=== PATIENT | male | born 1980 | race Two or more races ===

== ENCOUNTER 2023-10-26 19:41 | Emergency (ER) | payer MEDICARE, SELFPAY ==
[2023-10-26 19:43] VITALS: BP 109/79
--- NOTE | 2023-10-26 20:13 | ED.GENMED ---
History of Present Illness
General
Chief Complaint: Skin Problem
Source: patient and family
Exam Limitations: non verbal-adult and developmental stage
Time Seen by Provider: 10/26/23 20:01
Nursing documentation reviewed up to this point in time: agreed with
History of Present Illness
History of Present Illness:
43-year male with Down syndrome right-sided facial swelling started with a pimple, for few days had a virtual visit with his primary care today told to go to the ER doing to the ER at [facility] because of the long wait apparently came here mother is
requesting that we try to drain the pimple that she tried at home with a needle was unsuccessful also would like some eyedrops because he is rubbing his eyes and the red patient is at his baseline nonverbal mental status no fevers no vomiting
Past History
Past History
ED Past Medical History: Other (DOWNS)
Social History
Tobacco: Non-smoker
Alcohol: None
Drug: None
Personal: Single
Living: with family
Employment: Not employed
Review of Systems
Review of Systems
All Other Systems: Not applicable
Constitutional: Denies fever
EENT: Reports other (Right facial swelling, rubbing at his eyes)
Phy Exam
Physical Exam
Physical Exam:
Physical Exam
General: 43-year-old male with Down's, nontoxic
Neck: Swelling over the right gnosticism-2 cm cellulitic fluctuant area with some edema down beneath the right eye no proptosis
Heart: Regular
Lungs: no acute respiratory distress.
Neuro: Nonverbal moves all extremity
Skin: no rash
Psychiatric: Unable to assess
Extremities: no edema.
Course
Orders/Labs/Results
Orders:
Orders
10/26/23 20:10
Lidocaine/Epinephrine/Tetracai [Let Topical Anesthetic Gel] 3 ml TOPICAL NOW STA
10/26/23 20:17
Doxycycline [Vibramycin] 100 mg PO NOW STA
Vital Signs
Initial and Last Documented VS:
Initial Vital Signs
Temp Pulse Resp BP Pulse Ox
98.4 F 84 19 109/79 95
10/26/23 19:43 10/26/23 19:43 10/26/23 19:43 10/26/23 19:43 10/26/23 19:43
Last Documented Vital Signs
Temp Pulse Resp BP Pulse Ox
98.4 F 84 19 109/79 95
10/26/23 19:43 10/26/23 19:43 10/26/23 19:43 10/26/23 19:43 10/26/23 19:43
Procedures
Incision/Drainage/Joint Aspiration
Right Face:
Anethesia: topical- LET and 1% Lidocaine with Epi
Preparation: cleaned with Betadine
Type of procedure: drain
Nature of site: abscess
Description of abscess: less than 3cm
Loculations broken up: No
How much fluid was obtained?: scant amount
Fluid description: purulent
Treatment: left open for drainage
MDM/Problems Addressed
Differential Diagnosis Includes:
Cellulitis abscess infected hair follicle no signs of orbital cellulitis at this point
MDM/Problems Addressed:
Right-sided facial swelling
Chronic conditions affecting care:
Downs
Acute Exacerbation and/or Progression of Chronic Illness:
Downs
*Pulse Oximetry
Patient hypoxic: no
*Critical Care Note
Total Time (30-74mins, 75-104mins- exclusive of procedures): Not Applicable
Update Note
Update Note:
Update, will put some local anesthetic on try local I&D, to help facilitate healing started on antibiotics
Mother requests ointment for the eye
Update
Fluctuant area opened up scant drainage, which should help facilitate healing
ED Attending Note
-
Portions of this chart may have been created with voice recognition software.� Occasional wrong word or��sound alike� substitutions may have occurred due to the inherent limitations of voice recognition software.
Discharge Plan
Departure
Patient Disposition: Home (Routine Discharge)
Date of Disposition: 10/26/23
Time of Disposition: 21:06
Patient with high blood pressure during this ER visit?: No
Condition: Good
Discharge Problem:
Abscess, Cellulitis and abscess of face
Instructions: Wound Care (DC), Cellulitis (Skin Infection), Adult (DC), Skin Abscess
Prescriptions:
New
doxycycline monohydrate 25 mg/5 mL suspension for reconstitution
20 ml PO BID 10 Days Qty: 400 0RF
polymyxin B sulf-trimethoprim 10,000 unit- 1 mg/mL drops
1 drp ophthalmic (eye) BID 5 Days Qty: 10 0RF
Activity Restrictions/Additional Instructions:
Return to the ER for worsening symptoms
Interventions
Interventions:
*Risk Screen - Suicide Last Done: 10/26/23 20:06
*General Assessment Last Done: 10/26/23 20:25
*Neglect/Abuse Screening Last Done: 10/26/23 20:06
ED-Skin Assessment Last Done: 10/26/23 20:25
Discharge Date and Time
Print Language: YORUBA
--- NOTE | 2023-10-26 20:17 | EDRN ---
Called pharmacy for liquid doxycycline
[2023-10-26] MEDS: LET TOPICAL ANESTHETIC GEL 3 ML TOPICAL (20:18)
[2023-10-26] MEDS: VIBRAMYCIN 100 MG PO (20:53)
== END 2023-10-26 21:33 | disposition home or self-care (01) ==
LOC: EMR 19:41
PROVIDERS: EMERGENCY PHYSICIAN Emergency Medicine; FAMILY PHYSICIAN Family Medicine
DX: L03.211 Cellulitis of face (principal); L02.01 Cutaneous abscess of face; Q90.9 Down syndrome, unspecified; F84.0 Autistic disorder
CPT/HCPCS: 99283; 10060

== ENCOUNTER 2023-11-18 19:57 | Emergency (ER) | payer MEDICARE, SELFPAY ==
[2023-11-18 20:00] VITALS: BP 112/63
--- NOTE | 2023-11-18 22:31 | ED.GENMED ---
History of Present Illness
<Wally Julien MD, Resident - Last Filed: 11/18/23 23:57>
General
Chief Complaint: Male Genito-Urinary Symptoms
Source: family
Exam Limitations: non verbal-adult
Time Seen by Provider: 11/18/23 22:27
Travel History
Have you traveled to any high risk areas for coronavirus over the past 14 days?: No
Have you had any contact with someone who has COVID-19?: No
Do you have any symptoms of coronavirus? Fever > 100 degrees, chills, cough, shortness of breath, sore throat, loss of taste or smell, muscle aches, or headache?: No
History of Present Illness
History of Present Illness:
Ruben Morin, 43-year-old male with Down syndrome, has had scrotal swelling for the past few days. His mother noted the swelling and warmth over the swollen area while bathing him today - she had not noted any swelling a few days ago. He has also
been more itchy around his groin area for the past couple of days. Denies any fever, anorexia, unintentional weight loss, blood in urine or dysuria. Denies any oral and neck swelling or pain, saliva pooling, excessive drooling, or difficulty eating
or drinking.
Past History
<Wally Julien MD, Resident - Last Filed: 11/18/23 23:57>
Past History
ED Past Medical History: Other (Down syndrome)
ED Past Surgical History: Other (Cleft palate)
Social History
Tobacco: Non-smoker
Alcohol: None
Drug: None
Personal: Single
Living: with family
Employment: Not employed
Review of Systems
<Wally Julien MD, Resident - Last Filed: 11/18/23 23:57>
Review of Systems
Allergies reviewed?: Yes
Unable to obtain full review of systems at this time due to: non-verbal
Other source history: family
All Other Systems: ROS reviewed and negative except as documented in HPI and ROS
Phy Exam
<Wally Julien MD, Resident - Last Filed: 11/18/23 23:57>
General Physical Exam
General Presentation: well appearing and no apparent distress
General Skin: warm and dry
General Habitus: normal
General Mental: alert
General Hydration: appears well hydrated
ENT Exam
ENT Exam: EOMI, pharynx normal, neck supple and normocephalic
Eye Exam
Eye Exam: PERRL, cornea clear and conjunctiva normal
Cardiovascular Exam
Cardiovascular Exam: regular rate/rhythm, no edema, no murmur and normal peripheral pulses
Pulmonary Exam
Pulmonary Exam: lungs clear, no respiratory distress, no rales, no crackles, no rhonchi, no stridor, no wheezing and no cough
Gastrointestinal Exam
Gastrointestinal Exam: normal bowel sounds, non tender, soft, no organomegaly, no pulsatile mass and non distended
Genitourinary Exam Male
Exam Male: non circumcised and other (scrotal swelling and erythema)
Neurological Exam
Neurological Exam: alert, no motor deficits and non verbal
Musculoskeletal Exam
Musculoskeletal Exam: full ROM and no edema
Skin Exam
Skin Exam: normal color, warm/dry, no rash and no petechia
Psychiatric Exam
Psychiatric Exam: agitated and anxious
Course
<Wally Julien MD, Resident - Last Filed: 11/18/23 23:57>
Orders/Labs/Results
Orders:
Orders
11/18/23 22:[address] Non Medication Order As Directed
Physician Order: please weigh patient
Above order entered?: Yes
11/18/23 22:55
Midazolam HCl [Versed] 20 mg BUCCAL NOW STA
11/18/23 23:15
Midazolam HCl [Versed] 10 mg NASAL NOW STA
11/18/23 23:48
Amoxicillin/Clavulanate Potass [Augmentin 250 mg/5 ml] 500 mg PO NOW STA
Abnormal Lab Results
11/18/23
23:49
POC Glucose 113 H mg/dl
(70-99)
Vital Signs
Initial and Last Documented VS:
Initial Vital Signs
Pulse Resp BP Pulse Ox
79 18 112/63 99
11/18/23 20:00 11/18/23 20:00 11/18/23 20:00 11/18/23 20:00
Last Documented Vital Signs
Pulse Resp BP Pulse Ox
79 18 112/63 99
11/18/23 20:00 11/18/23 20:00 11/18/23 20:00 11/18/23 20:00
<Julita Redman MD - Last Filed: 11/18/23 23:57>
Orders/Labs/Results
Orders:
Orders
11/18/23 22:[address] Non Medication Order As Directed
Physician Order: please weigh patient
Above order entered?: Yes
11/18/23 22:55
Midazolam HCl [Versed] 20 mg BUCCAL NOW STA
11/18/23 23:15
Midazolam HCl [Versed] 10 mg NASAL NOW STA
11/18/23 23:48
Amoxicillin/Clavulanate Potass [Augmentin 250 mg/5 ml] 500 mg PO NOW STA
Abnormal Lab Results
11/18/23
23:49
POC Glucose 113 H mg/dl
(70-99)
Vital Signs
Initial and Last Documented VS:
Initial Vital Signs
Pulse Resp BP Pulse Ox
79 18 112/63 99
11/18/23 20:00 11/18/23 20:00 11/18/23 20:00 11/18/23 20:00
Last Documented Vital Signs
Pulse Resp BP Pulse Ox
79 18 112/63 99
11/18/23 20:00 11/18/23 20:00 11/18/23 20:00 11/18/23 20:00
<Wally Julien MD, Resident - Last Filed: 11/18/23 23:57>
MDM/Problems Addressed
Differential Diagnosis Includes:
scrotal cellulitis; testicular infection; epididymitis
MDM/Problems Addressed:
Gave midazolam for sedation to examine the patient who was previously agitated. Examination consistent with cellulitis; will give a dose of amoxicillin-clavulanate syrup, and send script to the pharmacy.
<Wally Julien MD, Resident - Last Filed: 11/18/23 23:57>
*Critical Care Note
Total Time (30-74mins, 75-104mins- exclusive of procedures): Not Applicable
ED Attending Note
<Wally Julien MD, Resident - Last Filed: 11/18/23 23:57>
-
Portions of this chart may have been created with voice recognition software.� Occasional wrong word or��sound alike� substitutions may have occurred due to the inherent limitations of voice recognition software.
<Julita Redman MD - Last Filed: 11/18/23 23:57>
ED Attending Note
Patient seen and examined by attending physician: Yes
I performed the substantive portion of visit, reviewed & personally made and approve the management plan that is documented in note by myself or HEAVENLY.: Yes
ED Attending Note:
Patient has diffuse mild erythema and warmth of his scrotum. Both testicles are extremely soft and nontender to the touch. There is no peritoneal redness or induration.
Discharge Plan
Departure
Patient Disposition: Home (Routine Discharge)
Date of Disposition: 11/18/23
Time of Disposition: 23:51
Patient with high blood pressure during this ER visit?: No
Discharge Problem:
Cellulitis of scrotum
Instructions: Cellulitis (Skin Infection), Adult ED
Prescriptions:
New
amoxicillin-pot clavulanate 600-42.9 mg/5 mL suspension for reconstitution
5 ml PO BID 7 Days Qty: 75 0RF
No Action
doxycycline monohydrate 25 mg/5 mL suspension for reconstitution
20 ml PO BID 10 Days Qty: 400 0RF
polymyxin B sulf-trimethoprim 10,000 unit- 1 mg/mL drops
1 drp ophthalmic (eye) BID 5 Days Qty: 10 0RF
Referrals:
Jeffrey Fritz MD [Family Provider] -
Interventions
Interventions:
*Risk Screen - Suicide Last Done: 11/18/23 20:00
*General Assessment Last Done: 11/18/23 20:00
*Neglect/Abuse Screening Last Done: 11/18/23 22:59
ED- Fall Risk Assessment Last Done: 11/18/23 22:59
*ED COVID-19 Vaccine History Last Done: 11/18/23 20:00
ED-Male Genitourinary Assessment Last Done: 11/18/23 22:59
Discharge Date and Time
Print Language: POLISH
[2023-11-18 22:59] VITALS: BMI 26.9
[2023-11-18] MEDS: VERSED 10 MG NASAL (23:20)
[2023-11-18 23:52] LABS: Glucose - Point of Care 113 mg/dl (70-99)
[2023-11-19] MEDS: AUGMENTIN 250 MG/5 ML 500 MG PO (00:22)
== END 2023-11-19 00:41 | disposition home or self-care (01) ==
LOC: EMR 19:57
PROVIDERS: EMERGENCY PHYSICIAN Emergency Medicine; FAMILY PHYSICIAN Family Medicine
DX: N49.2 Inflammatory disorders of scrotum (principal); Q90.9 Down syndrome, unspecified
CPT/HCPCS: 99282; 82962